=== PATIENT | female | born 1960 | race Caucasian/White ===

== ENCOUNTER → 2021-02-06 | Outpatient (CLI) | payer BC | LOC: KOH-I 11:19 | DX: M25.532 Pain in left wrist (principal) | CPT/HCPCS: 73100 ==

== ENCOUNTER → 2021-07-15 | Outpatient (CLI) | payer BC | LOC: HEART 5 15:30 | DX: R55 Syncope and collapse (principal); R00.2 Palpitations; I47.1 Supraventricular tachycardia ==

== ENCOUNTER 2021-09-10 20:15 | Inpatient (IN) | payer BC ==
[~2021-09-10] VITALS: Ht 177.8 cm; Wt 64.4 kg
[2021-09-10 20:41] LABS: HEMOGLOBIN 14.6 gm/dl (12.3-15.3); RED BLOOD COUNT 4.74 M/UL (4.00-5.10); WHITE BLOOD COUNT 7.9 K/UL (4.5-11.0)
[2021-09-10 21:09] LABS: BUN/CREATININE RATIO 16 (0-10)
[2021-09-11] MEDS ORDERED: CITALOPRAM HBR40 MG PO (01:37)
[2021-09-11] MEDS ORDERED: FLORINEF 0.1 M0.1 MG PO (01:38)
[2021-09-11 06:46] LABS: HEMOGLOBIN 14.2 gm/dl (12.3-15.3); RED BLOOD COUNT 4.67 M/UL (4.00-5.10); WHITE BLOOD COUNT 9.1 K/UL (4.5-11.0)
[2021-09-11 07:10] LABS: BUN/CREATININE RATIO 22 (0-10)
[2021-09-11] MEDS ORDERED: MULTIVITAMIN1 EACH PO (09:36)
[2021-09-11] MEDS ORDERED: IBUPROFEN600 MG PO (09:37)
[2021-09-11] MEDS ORDERED: PHENERGAN 25 MG25 M1 PO (09:37)
[2021-09-12 08:12] LABS: BUN/CREATININE RATIO 25 (0-10)
[2021-09-13 07:12] LABS: WHITE BLOOD COUNT 7.1 K/UL (4.5-11.0)
[2021-09-13 07:14] LABS: HEMOGLOBIN 11.5 gm/dl (12.3-15.3); RED BLOOD COUNT 3.85 M/UL (4.00-5.10)
[2021-09-13 07:55] LABS: BUN/CREATININE RATIO 22 (0-10)
[2021-09-14 06:49] LABS: BUN/CREATININE RATIO 20 (0-10)
[2021-09-15 05:54] LABS: BUN/CREATININE RATIO 9 (0-10)
[2021-09-16 07:19] LABS: BUN/CREATININE RATIO 10 (0-10)
[2021-09-16] MEDS ORDERED: HYDROCODON-ACE1 EAC2 PO (18:11)
[2021-09-16] MEDS ORDERED: COLACE100 MG PO (18:11)
[2021-09-17 06:51] LABS: RED BLOOD COUNT 3.65 M/UL (4.00-5.10); WHITE BLOOD COUNT 3.6 K/UL (4.5-11.0)
[2021-09-17 07:19] LABS: BUN/CREATININE RATIO 10 (0-10)
== END 2021-09-17 15:46 | disposition home or self-care (01) | DRG 336 ==
LOC: ER1 20:15 → CDU 23:35 → MED SURG 4 23:35
PROVIDERS: Emergency Medicine; Internal Medicine; Surgery; ADMIT Internal Medicine
PROC: 0DNW0ZZ Release Peritoneum, Open Approach (ICD-10-PCS; principal; 2021-09-12 07:30)
DX: K56.50 Intestinal adhesions [bands], unspecified as to partial versus complete obstruction (principal); E87.0 Hyperosmolality and hypernatremia; F41.9 Anxiety disorder, unspecified; E87.6 Hypokalemia; I95.9 Hypotension, unspecified; Z20.822 Contact with and (suspected) exposure to COVID-19; Z90.710 Acquired absence of both cervix and uterus; Z90.89 Acquired absence of other organs; Z98.890 Other specified postprocedural states; Z79.899 Other long term (current) drug therapy; Z82.49 Family history of ischemic heart disease and other diseases of the circulatory system; Z83.3 Family history of diabetes mellitus; Z90.49 Acquired absence of other specified parts of digestive tract
CPT/HCPCS: 36415; 80048; 80053; 81001; 82962; 83605; 83690; 83735; 84132; 85025; 93005; 96374; 96375; 97116-GP-CQ; 97161; 99285; J0690; J1100; J1170; J1650; J1885; J2001; J2060; J2250; J2270; J2405; J2550; J2704; J3010; J3480; J7030; J7120; Q9967; U0002